=== PATIENT | born 2000 | race Caucasian/White ===

== ENCOUNTER → 2020-05-04 | Outpatient (CLI) | payer OTHER ==
--- NOTE | 2020-05-04 18:04 | Diagnostic Imaging Report ---
PROCEDURE: CT head without contrast. TECHNIQUE: Multiple contiguous axial images were obtained through the brain without the use of intravenous contrast. Auto Exposure Controls were utilized during the CT exam to meet ALARA standards for radiation dose reduction. INDICATION: 20-year-old with preseptal cellulitis. Right eye swollen shut. COMPARISON: None. FINDINGS: Midline structures are not displaced. Lateral, 3rd and 4th ventricles are normal in size, shape and anatomic position. There is no mass, mass effect, hydrocephalus or hemorrhage. Carlos-white differentiation is normal. There is no sulcal effacement. There are no abnormal extra-axial fluid collections or hemorrhage. Basilar cisterns appear normal. Sinuses appear well pneumatized. Consistent with patient's history, there is right preseptal edema in keeping with the cellulitis. There is some stranding extending along the outer margins of the anterior lobe and the extraconal space. The retro-orbital however appears normal with normal fascial planes. The extraconal, coronal and intraconal spaces of retro-orbits appear normal. The soft tissue swelling extends along the nose to the medial aspect of the left orbit. IMPRESSION: 1. Unremarkable nonenhanced CT brain. 2. Right periorbital edema soft tissue swelling in keeping with cellulitis which extends along the anterior aspect of the nose and medial aspect of the left orbit. 3. The right and left retro-orbit included extraconal, coronal and intraconal spaces are normal. Additional nonemergent findings as described above. Dictated by: Dictated on workstation # [id number]
== END ==
LOC: RAD 16:32
PROVIDERS: ATTEND Optometrist
DX: L03.213 Periorbital cellulitis (principal); H05.011 Cellulitis of right orbit; M79.89 Other specified soft tissue disorders
CPT/HCPCS: 70450